=== PATIENT | male | born 1935 | race Caucasian/White ===

== ENCOUNTER 2024-01-20 19:15 | Emergency (ER) | payer OTHER ==
[2024-01-20 19:21] VITALS: BP 136/78; PULSE 70; RESP 18; TEMP 98.2; BMI 27.2
[2024-01-20] MEDS ORDERED: LIDOCAINE HCL 2% JELLY 10 ML CARTRIDGE ONE (19:46)
[2024-01-20] MEDS: LIDOCAINE HCL 2% JELLY 10 ML CARTRIDGE UR ONE (20:13)
[2024-01-20] MEDS ORDERED: CIPROFLOXACIN 250 MG TABLET (RESTRICTED TO ID) PO ONE (20:16)
[2024-01-20] MEDS: CIPROFLOXACIN 500 MG TABLET (RESTRICTED TO ID) PO ONE (20:22)
== END 2024-01-21 06:40 | disposition home or self-care (01) ==
LOC: FER 19:15
DX: R31.0 Gross hematuria (principal); R33.9 Retention of urine, unspecified
CPT/HCPCS: 81003; 81015; 87086; 99283-25

== ENCOUNTER 2024-06-07 17:00 | Emergency (ER) | payer OTHER ==
[2024-06-07 18:01] VITALS: BP 106/54; PULSE 74; RESP 16; TEMP 98.4; BMI 25.4
== END 2024-06-07 18:52 | disposition home or self-care (01) ==
LOC: FER 17:00 → SUPCPDRO 17:00 → FER 18:52
DX: I82.411 Acute embolism and thrombosis of right femoral vein (principal)
CPT/HCPCS: 93971-TC; 99284-25